=== PATIENT | female | born 1980 | race Caucasian/White ===

== ENCOUNTER 2021-03-29 16:33 | Emergency (ER) | payer SELFPAY ==
[~2021-03-29] VITALS: Ht 172.7 cm; Wt 67.9 kg
[2021-03-29 17:11] LABS: MICROSCOPIC NOT IND
[2021-03-29 17:20] LABS: BASOPHILS % (AUTO) 0 % (0-1); EOSINOPHILS % (AUTO) 2 % (1-7); LYMPHOCYTES % (AUTO) 31 % (22-44); MEAN CORPUSCULAR HGB CONC 32.8 g/dL (32.4-35.8); MEAN PLATELET VOLUME 7.8 fL (7.4-10.4); MONOCYTES % (AUTO) 7 % (2-9); NEUTROPHILS % (AUTO) 60 % (42-75); PLATELET COUNT 273 x10^3/uL (130-400); RED BLOOD COUNT 3.99 x10^6/uL (3.82-5.3); RED CELL DISTRIBUTION WIDTH 14.4 % (9.6-15.2)
[2021-03-29 17:31] LABS: ALANINE AMINOTRANSFERASE 17 U/L (12-78); ALBUMIN 3.2 g/dL (3.4-5.0); ANION GAP 8 mmol/L (5-15); CALCIUM 8.2 mg/dL (8.5-10.1); CHLORIDE 109 mmol/L (98-107)
[2021-03-29 17:34] LABS: ALKALINE PHOSPHATASE 49 U/L (45-117); BILIRUBIN,TOTAL 0.3 mg/dL (0.2-1.0); CREATININE 0.63 mg/dL (0.55-1.02); TOTAL PROTEIN 6.8 g/dL (6.4-8.2)
--- NOTE | 2021-03-29 20:09 | NUR ---
PT TO ROOM FROM LOBBY
[2021-03-29] MEDS ORDERED: PROCHLORPERAZINE 5 MG/ML, 2ML ONE (20:47)
[2021-03-29] MEDS ORDERED: KETOROLAC 60 MG/2 ML ONE (20:47)
[2021-03-29] MEDS ORDERED: MAALOX/HYOSCYAMINE/LIDOCAINE 45 ML BTL ONE (20:47)
[2021-03-29] MEDS ORDERED: KETOROLAC 30 MG/1 ML IM ONE (21:00)
[2021-03-29] MEDS ORDERED: MAALOX/HYOSCYAMINE/LIDOCAINE 45 ML BTL PO ONE (21:00)
[2021-03-29] MEDS ORDERED: PROCHLORPERAZINE 5 MG/ML, 2ML IM ONE (21:00)
[2021-03-29 21:05] VITALS: BP 101/53
== END 2021-03-29 21:06 | disposition home or self-care (01) ==
LOC: ED 21:00
DX: K29.00 Acute gastritis without bleeding (principal); R10.12 Left upper quadrant pain; K21.9 Gastro-esophageal reflux disease without esophagitis
CPT/HCPCS: 36415; 80053; 81003; 83690; 85025; 96372; 99284; J0780; J1885